=== PATIENT | male | born 1965 | race Caucasian/White ===

== ENCOUNTER → 2017-08-24 07:41 | Outpatient (CLI) | payer OTHER, SELFPAY ==
--- NOTE | 2017-08-24 07:43 | ECHOD_ITS ---
Reason For Study: Family hx of bicuspid AV Procedure This was a 2D Doppler, Color Flow transthoracic echocardiogram. The exam was of adequate technical quality. Exam performed in department. Left Ventricle Normal LV size. Apical false tendon noted. Left ventricular systolic function is normal. The estimated ejection fraction is 65 %. No evidence for diastolic dysfunction. No regional wall motion abnormalities noted. Right Ventricle Normal RV size. Normal systolic function. Atria Normal left atrium. Normal right atrium. No doppler evidence for ASD. Mitral Valve There is no mitral annular calcification. Mild diffuse mitral valve thickening. Mild mitral valve prolapse, anterior leaflet. Trivial mitral valve insufficiency. Tricuspid Valve Normal tricuspid valve. Trivial tricuspid valve insufficiency. Right ventricular systolic pressure estimated to be 24 mmHg. Aortic Valve Trisinus/trileaflet aortic valve. Normal aortic valve. Pulmonic Valve The pulmonic valve is not well visualized. Great Vessels Normal sized aortic root. MMode/2D Measurements & Calculations LVIDd: 4.1 cm IVSd: 0.97 cm Ao root diam: 2.8 cm LVIDs: 2.7 cm LVPWd: 1.0 cm LA dimension: 2.8 cm RVDd: 3.0 cm FS: 34.8 % LAV(MOD-bp): 42.5 ml LA A4 area: 14.5 cm2 RA A4 area: 14.9 cm2 LAV(MOD-bp) Indexed: 24.0 ml/m2 LAV(MOD-sp2): 42.2 ml LAV(MOD-sp4): 37.1 ml Doppler Measurements & Calculations MV E max ko: 97.5 cm/sec Lat Peak E' Ko: 12.0 cm/sec Med Peak E' Ko: 12.7 cm/sec MV A max ko: 51.0 cm/sec E/E' lat: 8.1 E/E' med: 7.7 MV E/A: 1.9 Ao V2 max: 104.0 cm/sec LV V1 max: 88.3 cm/sec PA V2 max: 87.4 cm/sec Ao max P.3 mmHg LV V1 max P.1 mmHg TR max ok: 226.1 cm/sec TR max P.5 mmHg Interpretation Summary Left ventricular systolic function is normal. The estimated ejection fraction is 65 %. Apical false tendon noted. Mild mitral valve prolapse, anterior leaflet Mild diffuse mitral valve thickening. Trivial mitral valve insufficiency. Trivial tricuspid valve insufficiency. Right ventricular systolic pressure estimated to be 24 mmHg. No evidence for diastolic dysfunction. Ordering Physician: Lenny Munoz Referring Physician: Dora Luz M.D. Performed By: Melita Whalen RDCS
== END ==
PROVIDERS: Family Provider Internal Medicine; PCP Internal Medicine; Visit Provider Internal Medicine Cardiovascular Disease
DX: Z82.79 Family history of other congenital malformations, deformations and chromosomal abnormalities (principal)
CPT/HCPCS: 93306

== ENCOUNTER → 2018-04-04 16:28 | Outpatient (CLI) | payer OTHER, SELFPAY ==
[2017-08-17 15:35] VITALS: BMI 25.0
== END ==
PROVIDERS: Family Provider Internal Medicine; PCP Internal Medicine; Referring Provider Otolaryngology Otolaryngology/Facial Plastic Surgery; Visit Provider Otolaryngology Otolaryngology/Facial Plastic Surgery
DX: J02.9 Acute pharyngitis, unspecified (principal); J32.9 Chronic sinusitis, unspecified
CPT/HCPCS: 87070; 87077; 87186

== ENCOUNTER 2018-07-01 06:30 | Observation (INO) | payer OTHER, SELFPAY ==
[2018-07-01] VITALS (10 sets, daily range): BP systolic 119–138; BP diastolic 61–108; PULSE 60–74; RESP 15–20; TEMP 36.4–37.3; O2SAT 96–99; BMI 26.0; BMI 25.0
--- NOTE | 2018-07-01 06:58 | EKG12_ITS ---
Test Reason : REPEAT Blood Pressure : / mmHG Vent. Rate : 066 BPM Atrial Rate : 066 BPM P-R Int : 182 ms QRS Dur : 090 ms QT Int : 386 ms P-R-T Axes : 052 -36 032 degrees QTc Int : 404 ms Normal sinus rhythm Left axis deviation Abnormal ECG Confirmed by ALEXX GONZALES, BELÉN ([id number]), design editor BUDDY VIZCARRA ([id number]) on 07/04/2018 1:48:55 PM Referred By: SHARRON Confirmed By:BELÉN COFFEY MD
--- NOTE | 2018-07-01 06:58 | RAD_ITS ---
STUDY: X-RAY CHEST REASON FOR EXAM: Male, 52 years old. Chest pain TECHNIQUE: Frontal view COMPARISON: None. FINDINGS: The lungs are clear and expanded. There is no demonstrated pleural abnormality. Normal size heart. Normal mediastinum and jacqueline. Normal visualized pulmonary arteries. Normal visualized aortic arch and descending thoracic aorta. Normal visualized thoracic spine. Normal visualized ribs, clavicles, and shoulders. There is no demonstrated abnormality of the visualized soft tissue structures of the upper abdomen. RAD/Chest 1 View (Portable) IMPRESSION: Normal x-ray examination of the chest. Electronically Signed: Lasha Wu MD at 7:29 EDT , Service support ,
--- NOTE | 2018-07-01 06:58 | CT_ITS ---
STUDY: CTA CHEST REASON FOR EXAM: Male, 52 years old. Sudden onset back pain RADIATION DOSAGE (If Supplied By Facility): CTDIvol = ( 10.54 ) mGy, DLP = ( 533.07 ) mGycm TECHNIQUE: The examination was performed with the intravenous administration of 100CC IV Isovue 370. Post-processing of the angiographic images was performed, with multiplanar reformation and 3D reconstruction. Individualized dose optimization techniques were used for this CT. COMPARISON: None. FINDINGS: Status post left thyroidectomy Normal enhancement of the main pulmonary artery and right and left pulmonary arteries. Normal enhancement of the bilateral peripheral pulmonary arteries. There is no demonstrated pulmonary embolism. Normal thoracic aorta and visualized great vessels. There is no demonstrated aortic dissection. Normal heart and pericardium. Normal mediastinum. Normal hilar regions. Normal visualized trachea and bronchi. The lungs are well expanded. Normal pulmonary parenchyma. Normal pleura. Normal chest wall structures. There are degenerative changes of thoracic spine. Normal visualized upper abdomen. CT/CTA Chest W/WO Contrast IMPRESSION: Normal CTA chest examination, without a demonstrated pulmonary embolism or arterial dissection. Evaluation of the abdominal aorta as well demonstrates no evidence of dissection. Essentially unremarkable exam. Electronically Signed: Kentrell Hanson DO at 8:38 EDT Tel , Service support ,
--- NOTE | 2018-07-01 06:59 | CT_ITS ---
STUDY: CTA CHEST REASON FOR EXAM: Male, 52 years old. Sudden onset back pain RADIATION DOSAGE (If Supplied By Facility): CTDIvol = ( 10.54 ) mGy, DLP = ( 533.07 ) mGycm TECHNIQUE: The examination was performed with the intravenous administration of 100CC IV Isovue 370. Post-processing of the angiographic images was performed, with multiplanar reformation and 3D reconstruction. Individualized dose optimization techniques were used for this CT. COMPARISON: None. FINDINGS: Status post left thyroidectomy Normal enhancement of the main pulmonary artery and right and left pulmonary arteries. Normal enhancement of the bilateral peripheral pulmonary arteries. There is no demonstrated pulmonary embolism. Normal thoracic aorta and visualized great vessels. There is no demonstrated aortic dissection. Normal heart and pericardium. Normal mediastinum. Normal hilar regions. Normal visualized trachea and bronchi. The lungs are well expanded. Normal pulmonary parenchyma. Normal pleura. Normal chest wall structures. There are degenerative changes of thoracic spine. Normal visualized upper abdomen. CT/CT ANGIO ABD&PEL W/O&W/DYE IMPRESSION: Normal CTA chest examination, without a demonstrated pulmonary embolism or arterial dissection. Evaluation of the abdominal aorta as well demonstrates no evidence of dissection. Essentially unremarkable exam. Electronically Signed: Kentrell Hanson DO at 8:38 EDT Tel , Service support ,
--- NOTE | 2018-07-01 07:00 | ED.VISSUMM ---
- ER Visit Summary Date of Service: 07/01/18 Chief Complaint: Back pain History of Present Illness: The patient is a 52 M who presents with sudden onset of thoracic back pain radiating into the chest. Patient states he rolled over in bed to his right side and was woken by severe back pain between his shoulder blades. He had associated chest pain and tightness, and had an episode of the arms also feeling tight and numb. Pain is waxing and waning in intensity. Family states he turned very pale, and the patient thought his heart might not be beating. Patient has no medical history. Denies any cardiac history, but has a family history of bicuspid aortic valve. Patient does not take any medications. No tobacco use, occasional alcohol use. No abdominal pain, nausea or vomiting, diarrhea or urinary symptoms. Physical Examination: Vital signs: afebrile, hemodynamically stable, no hypoxia on room air General: well nourished, well developed, in no distress Skin: warm, dry, no rash, pale HEENT: normocephalic and atraumatic; PERRL, EOMI, moist mucous membranes, no conjunctiva pallor Cardiovascular: regular rate and rhythm without murmurs, no peripheral edema, 2+ pulses all distal extremities Respiratory: No increased work of breathing, lungs are clear to auscultation bilaterally, no rales, rhonchi or wheezing Abdominal: Abdomen is soft, nontender with normoactive bowel sounds, no guarding or rebound, no pulsatile masses, no spinal or paraspinal tenderness in the back MSK: Moves all extremities, no deformities, normal strength Neuro: Awake and alert, oriented ?4. No facial droop, sensation and motor function intact and symmetric Test Results: [ Abnormal Lab Results 07/01/18 07/01/18 07/01/18 06:30 06:30 06:30 WBC 6.5 RBC 4.27 L Hgb 13.6 Hct 39.6 L MCV 92.7 MCH 31.9 MCHC 34.3 RDW 12.0 RDW Differential 40.6 Plt Count 204 MPV 10.7 Immature Gran % (Auto) 0.200 Neut % (Auto) 41.1 L Lymph % (Auto) 42.2 H [place] % (Auto) 9.4 Eos % (Auto) 6.6 H Baso % (Auto) 0.5 Absolute Neuts (auto) 2.7 Absolute Lymphs (auto) 2.74 Total Counted Not Reportable PT 13.4 INR 1.0 APTT 27.3 Sodium 142 Potassium 3.7 Chloride 107 Carbon Dioxide 28.0 Anion Gap 7 BUN 16 Creatinine 1.11 Estim Creat Clear Calc 71.85 Est GFR (MDRD) Af Amer 90 Est GFR (MDRD) Non-Af 74 BUN/Creatinine Ratio 14.4 Glucose 117 H Calcium 8.3 L Total Bilirubin 0.30 AST 17 ALT 26 Alkaline Phosphatase 60 Troponin I < 0.015 Total Protein 6.9 Albumin 3.5 Globulin 3.4 Albumin/Globulin Ratio 1.0 Lipase 113 Clinical Impression(s) from Imaging Studies Chest CTA 07/01/18 06:58 IMPRESSION: Normal CTA chest examination, without a demonstrated pulmonary embolism or arterial dissection. Evaluation of the abdominal aorta as well demonstrates no evidence of dissection. Essentially unremarkable exam. Electronically Signed: Kentrell Hanson DO at 8:38 EDT Tel , Service support , Chest X-Ray 07/01/18 06:58 IMPRESSION: Normal x-ray examination of the chest. Electronically Signed: Lasha Wu MD at 7:29 EDT , Service support , Abdomen/Pelvis CTA 07/01/18 06:59 IMPRESSION: Normal CTA chest examination, without a demonstrated pulmonary embolism or arterial dissection. Evaluation of the abdominal aorta as well demonstrates no evidence of dissection. Essentially unremarkable exam. Electronically Signed: Kentrell Hanson DO at 8:38 EDT Tel , Service support , Medications Given Discontinued Medications Sodium Chloride () 1,000 mls @ 1,000 mls/hr IV .Q1H ONE Stop: 07/01/18 07:57 Last Admin: 07/01/18 07:09 Dose: 1,000 mls/hr Morphine Sulfate () 4 mg IV X1 ONE Stop: 07/01/18 07:34 Last Admin: 07/01/18 07:56 Dose: 4 mg Ondansetron HCl (Zofran) 4 mg IV X1 ONE Stop: 07/01/18 07:34 Last Admin: 07/01/18 07:56 Dose: 4 mg Emergency Department Course and Treatment: Patient presents with sudden onset severe back pain radiating into the chest and arms, and is pale on initial assessment. Concern for ACS, dissection, or embolism, acute pancreatitis, among other possible pathologies. Chest x-ray, CTA, EKG, lab work performed. Chest x-ray showed no pneumonia, pneumothorax, or widened mediastinum. Initial EKG showed a sinus rhythm without any ischemic changes or ectopy. Labs showed negative troponin, no leukocytosis, no electrolyte, hepatic or renal derangements. Lipase normal. CT angios of the chest, abdomen and pelvis showed no dissection, aortic aneurysm, pulmonary embolism, or other abnormalities to explain patient's symptoms. Patient began having worsening pain and was given morphine. Once the CT angios showed no dissection, patient was given aspirin and additional morphine. Patient had a repeat EKG that showed no changes from the initial EKG. Patient has no cardiac risk factors, however given his concerning story and thoracic back and chest pain with occasional radiation into the arms, this is concerning for possible acute coronary syndrome. He was discussed with Dr. Cleaning for admission for further chest pain rule out. Treatment Plan: [] Disposition: [] Impression: Chest and thoracic back pain, concern for ACS This note was generated with [employer] dictation software. It may contain incorrect words, spelling, and punctuation that were not noted in review of the chart prior to signing ED Disposition - Plan for ED Patient: Referrals: Dora Luz DO [Primary Care Provider] -
[2018-07-01] MEDS: 0.9% Normal Saline 1,000 ML 1000 ML IV (07:09)
[2018-07-01 07:19] LABS: Absolute Lymphocyte Count 2.74 X10^3/ul (0.83-4.51); Absolute Neutrophil Count 2.7 X10^3/uL (2.0-7.7); Basophil# 0.03 X10^3/uL; Basophil% 0.5 % (0-1); Eosinophil# 0.43 X10^3/uL; Eosinophils% 6.6 % (0-5); Hematocrit 39.6 % (40-54); Hemoglobin 13.6 g/dl (13.0-16.5); Lymphocyte # 2.74 X10^3/ul (4.0); Lymphocyte % 42.2 % (19-41); Mean Corp Hgb Conc 34.3 g/gl (32-36); Mean Corpuscular Hgb 31.9 pg (27.0-32.0); Mean Corpuscular Volume 92.7 fL (80-94); Mean Platelet Vol. 10.7 fl (6.2-12.0); Monocyte# 0.61 X10^3/uL; Monocyte% 9.4 % (0-10); Neutrophil # 2.68 X10^3/uL (2.7-7.7); Neutrophil % 41.1 % (47-70); Platelet Count 204 K/mm3 (150-450); RBC Distribution Width SD 40.6 fl (35.1-43.9); Red Blood Count 4.27 M/mm3 (4.6-6.2); White Blood Count 6.5 K/mm3 (4.4-11.0)
[2018-07-01 07:20] LABS: POSITIVE COUNT NO; POSITIVE DIFFERENTIAL NO; POSITIVE MORPHOLOGY NO
[2018-07-01 07:23] LABS: Partial Thromboplast Time 27.3 Seconds (24.1-36.2); Prothrombin Time (Protime)PT. 13.4 SECONDS (11.7-14.9)
[2018-07-01 07:29] LABS: AST(SGOT) 17 U/L (15-37); Alanine Aminotransfer ALT/SGPT 26 U/L (16-61); Albumin, Serum 3.5 g/dL (3.2-5.0); Alkaline Phosphatase 60 U/L (45-117); Anion Gap 7 (5-15); BUN 16 mg/dL (7-18); BUN/Creat Ratio 14.4 RATIO (10-20); Calcium,Total 8.3 mg/dL (8.5-10.1); Chloride 107 mmol/L (98-107); Creatinine, Serum 1.11 mg/dL (0.70-1.30); EST Glomerular Filtration Rate 74 mL/min (>60); Est Glom Filt Rate - Afr Amer 90 mL/min (>60); Estimated Creatinine Clearance 71.85 ml/min; Globulin 3.4 g/dL (2.2-4.2); Glucose 117 mg/dL (74-106); Lipase 113 U/L (73-393); Potassium 3.7 mmol/L (3.5-5.1); Protein, Total 6.9 g/dL (6.4-8.2); Sodium Level 142 mmol/L (136-145)
[2018-07-01] MEDS: Morphine 4 MG/ML Syringe IV ×2 (07:56→09:13)
[2018-07-01] MEDS: Ondansetron 4 MG/2 ML Vial IV (07:56)
--- NOTE | 2018-07-01 08:54 | EKG12_ITS ---
Test Reason : BACK Blood Pressure : / mmHG Vent. Rate : 066 BPM Atrial Rate : 066 BPM P-R Int : 184 ms QRS Dur : 088 ms QT Int : 388 ms P-R-T Axes : 037 -13 031 degrees QTc Int : 406 ms Normal sinus rhythm Normal ECG Confirmed by ALEXX GONZALES, BELÉN ([id number]), school photograph editor BUDDY VIZCARRA ([id number]) on 07/04/2018 1:49:11 PM Referred By: SHARRON Confirmed By:BELÉN COFFEY MD
[2018-07-01] MEDS: Aspirin 81 MG TAB.CHEW 324 MG PO (09:12)
--- NOTE | 2018-07-01 09:19 | NURSING ---
DR RHONDA MCDERMOTT
--- NOTE | 2018-07-01 09:24 | PCM.HP.STD ---
Problem List (1) Chest pain Status: Acute (2) Family history of bicuspid aortic valve Status: Chronic (3) Family history of valvular heart disease Status: Chronic History of Present Illness Date of Admission: 07/01/18 Chief Complaint: Chest discomfort The patient is a 52 year old M in relatively good health who presented to the emergency department with chest discomfort. Patient states he turned around in bed on the morning of his presentation and developed sudden onset of chest discomfort. He described the discomfort as pressure radiating to his back as well as both arms. He also did experience some nausea but no vomiting. He also had difficulty breathing. He presented to the emergency department where he underwent subsequent evaluation with CTA of the abdomen and chest both unremarkable. His initial set of cardiac enzymes also came back negative admitted to a monitored bed for subsequent evaluation Past Medical History Past Medical History (Chronic Problems): Chronic Problems (Last Updated 08/17/17 @ 15:39 by Gertrude Colmenares) Family history of bicuspid aortic valve (Chronic) Family history of valvular heart disease (Chronic) Medical History: Medical History (Last Reviewed 07/01/18 @ 09:47 by Chris Cleaning MD) Family history of bicuspid aortic valve (Acute) Z82.79 Family history of valvular heart disease (Chronic) Z82.49 Cyst of buttocks L72.9 Hydrocele N43.3 Allergies No Known Allergies Allergy (Unverified 08/17/17 15:35) Home Medications: Ambulatory Orders Medication Instructions Recorded ascorbic acid (vitamin C) 500 mg 1,000 mg PO QDAY cap 08/16/17 capsule cholecalciferol (vitamin D3) 2,000 2,000 unit PO QDAY 08/16/17 unit capsule multivitamin tablet 1 tab PO QDAY 08/16/17 omega-3 fatty acids 1,000 mg 1,000 mg PO QDAY 08/16/17 capsule Calcium Carb/Mag Ox/Zinc Sulf 1 each PO DAILY 07/01/18 [Sqjqsry-Tmytuevha-Chwv Tablet] Vitamin B Complex/Folic Acid 0.4 mg PO DAILY 07/01/18 [Super B Maxi Complex Caplet] Surgical History: Surgical History (Last Reviewed 07/01/18 @ 09:47 by Chris Cleaning MD) Hx of appendectomy Z90.49 Smoking Status: Never smoker - *Family History Paternal Family History: Family History (Last Reviewed 07/01/18 @ 09:48 by Chris Cleaning MD) Father Bicuspid aortic valve Other Family history of valvular heart disease Maternal Family History: Family History (Last Reviewed 07/01/18 @ 09:48 by Chris Cleaning MD) Father Bicuspid aortic valve Other Family history of valvular heart disease Review of Systems Constitutional: Denies: Anorexia, Chills, Fever, Night Sweats, Weight Change HEENT: Denies: Head Aches, Sinus Congestion, Sinus Drainage Cardiovascular: Reports: Chest Pain. Denies: Orthopnea, Palpitations, Paroxysmal Noc. Dyspnea Respiratory: Reports: Shortness of Breath. Denies: Cough Gastrointestinal: Reports: Nausea. Denies: Abdominal Pain, Hematemesis, Hematochezia, Melena, Vomiting Genitourinary: Denies: Dysuria, Frequency, Hematuria, Urgency Musculoskeletal: Denies: Joint Pain, Joint Tenderness Skin: Denies: Rash Neurological: Denies: Focal weakness, Numbness, Tingling Psychiatric: Denies: Homicidal Ideations, Suicidal Ideations Hematologic/ Lymphatic: Denies: Easy Bruising, Easy Bleeding VTE Information - Inpt Only VTE Present on Admission: No VTE Mechan Device Prophylaxis: None VTE Pharm Prophylaxis ordered?: Yes Patient Problems: Active and Suspected Problems (Last Updated 08/17/17 @ 15:39 by Gertrude Colmenares) Chest pain (Acute) Objective: GENERAL: cooperative HEENT: Atraumatic; moist oral mucosa EYES; Anicteric, Normal Conjunctiva NECK; supple, normal thyroid, no distended JVD. RESPIRATORY: Diminished to auscultation bilaterally, CARDIOVASCULAR: Regular S1 S2, no audible murmurs GI: soft, non-tender, normoactive bowel sounds, : No Renal angle tenderness; EXTREMITIES: No edema, no clubbing, no cyanosis. MUSCULOSKELETAL: No Joint Tenderness; no muscle waisting NEURO: Awake; no lateralizing signs. SKIN: No Rash PSYCH; Normal affect - Physical Exam Vital Signs Temp Pulse Resp BP Pulse Ox 97.6 F L 69 16 132/84 H 99 07/01/18 06:31 07/01/18 08:38 07/01/18 08:38 07/01/18 08:38 07/01/18 08:38 Oxygen Delivery Method Room Air Weight: 73.3 kg Body Mass Index (BMI) 26.0 Laboratory Tests Past 24 Hrs 07/01/18 07/01/1807/01/19 06:30 06:30 06:30 WBC 6.5 RBC 4.27 L Hgb 13.6 Hct 39.6 L MCV 92.7 MCH 31.9 MCHC 34.3 RDW 12.0 RDW Differential 40.6 Plt Count 204 MPV 10.7 Immature Gran % (Auto) 0.200 Neut % (Auto) 41.1 L Lymph % (Auto) 42.2 H [place] % (Auto) 9.4 Eos % (Auto) 6.6 H Baso % (Auto) 0.5 Absolute Neuts (auto) 2.7 Absolute Lymphs (auto) 2.74 Total Counted Not Reportable PT 13.4 INR 1.0 APTT 27.3 Sodium 142 Potassium 3.7 Chloride 107 Carbon Dioxide 28.0 Anion Gap 7 BUN 16 Creatinine 1.11 Estim Creat Clear Calc 71.85 Est GFR (MDRD) Af Amer 90 Est GFR (MDRD) Non-Af 74 BUN/Creatinine Ratio 14.4 Glucose 117 H Calcium 8.3 L Total Bilirubin 0.30 AST 17 ALT 26 Alkaline Phosphatase 60 Troponin I < 0.015 Total Protein 6.9 Albumin 3.5 Globulin 3.4 Albumin/Globulin Ratio 1.0 Lipase 113 Assessment/Plan All Active Problems (Last Updated 08/17/17 @ 15:39 by Gertrude Colmenares) Chest pain (Acute) Patient is a 52-year-old gentleman in relatively good health presented with chest pain 1. Atypical chest pain patient has been placed on a monitored bed plan is to rule out AR with serial cardiac enzymes patient undergo subsequent evaluation with a 2D echo as well as a nuclear stress test if AR is ruled out 2. Family history of valvular heart disease. Father had bicuspid aortic valve which was repaired 3. DVT prophylaxis: SC Lovenox. Code Visit OBSV E&M: [id number] Initial observation care L2
--- NOTE | 2018-07-01 09:27 | NURSING ---
PCU CP KITJAROD
[2018-07-01] MEDS: Nitroglycerin SL (ED/IMG/CATH) 0.4 MG TABLET SUBLINGUAL (09:32)
--- NOTE | 2018-07-01 10:04 | EKG12_ITS ---
Test Reason : AM EKG Blood Pressure : / mmHG Vent. Rate : 067 BPM Atrial Rate : 067 BPM P-R Int : 170 ms QRS Dur : 086 ms QT Int : 370 ms P-R-T Axes : 045 -14 043 degrees QTc Int : 390 ms Normal sinus rhythm Low voltage QRS (Limb leads) Confirmed by ALEXX GONZALES, BELÉN ([id number]), senior technical editor BUDDY VIZCARRA ([id number]) on 07/04/2018 1:55:49 PM Referred By: LYN Confirmed By:BELÉN COFFEY MD
[2018-07-01] MEDS: Enoxaparin 40 MG/0.4 ML Syringe SC (12:01)
[2018-07-01] MEDS: Acetaminophen 325 MG Tablet 650 MG PO (17:40)
[2018-07-01] MEDS: Atorvastatin Calcium 40 MG Tablet PO (21:28)
[2018-07-02 03:00] VITALS: PULSE 63
[2018-07-02 03:30] VITALS: BP 124/72; PULSE 64; RESP 18; TEMP 37.1; O2SAT 96
[2018-07-02] MEDS: Aspirin E.C. 81 MG Tablet PO (05:06)
[2018-07-02] MEDS: 0.9% NaCl Peripheral Flush Adult/Peds IV (05:08)
[2018-07-02 05:28] LABS: Hematocrit 38.9 % (40-54); Hemoglobin 13.3 g/dl (13.0-16.5); Mean Corp Hgb Conc 34.2 g/gl (32-36); Mean Corpuscular Hgb 31.7 pg (27.0-32.0); Mean Corpuscular Volume 92.8 fL (80-94); Mean Platelet Vol. 10.8 fl (6.2-12.0); Platelet Count 195 K/mm3 (150-450); RBC Distribution Width SD 39.6 fl (35.1-43.9); Red Blood Count 4.19 M/mm3 (4.6-6.2); White Blood Count 7.5 K/mm3 (4.4-11.0)
[2018-07-02 05:34] LABS: International Normalized Ratio 1.1; Scan Indicated on CBC? Y/N NO
[2018-07-02 05:35] LABS: Partial Thromboplast Time 30.4 Seconds (24.1-36.2)
--- NOTE | 2018-07-02 05:55 | EKG12_ITS ---
Test Reason : CP ADMISSION Blood Pressure : / mmHG Vent. Rate : 059 BPM Atrial Rate : 059 BPM P-R Int : 198 ms QRS Dur : 086 ms QT Int : 382 ms P-R-T Axes : 037 -19 036 degrees QTc Int : 378 ms Sinus bradycardia Low voltage QRS (Limb leads) Confirmed by ALEXX GONZALES, BELÉN ([id number]), food editor BUDDY VIZCARRA ([id number]) on 07/04/2018 1:57:41 PM Referred By: RHONDA Confirmed By:BELÉN COFFEY MD
--- NOTE | 2018-07-02 05:55 | ECHOD_ITS ---
Reason For Study: CHEST PAIN Procedure This was a 2D Doppler, Color Flow transthoracic echocardiogram. Exam performed portable in patient room. Left Ventricle Normal LV size. Left ventricular systolic function is normal. The estimated ejection fraction is 60 %. Normal diastology for age. No regional wall motion abnormalities noted. Right Ventricle Normal RV size. Normal systolic function. Atria Normal left atrium. Normal right atrium. Mitral Valve Normal mitral valve. Mild (1+) eccentric mitral valve insufficiency. Tricuspid Valve Normal tricuspid valve. Mild (1+) tricuspid valve insufficiency. Pulmonary artery systolic pressure is 25 mmHg. Aortic Valve Normal aortic valve. Trisinus/trileaflet aortic valve. Pulmonic Valve Normal pulmonic valve. Great Vessels Normal aortic root. The pulmonary artery is normal size. Normal inferior vena cava. Pericardium/Pleural No pericardial effusion. MMode/2D Measurements & Calculations LVIDd: 4.1 cm IVSd: 0.94 cm Ao root diam: 3.3 cm LVIDs: 2.6 cm LVPWd: 0.90 cm RVDd: 3.4 cm FS: 35.8 % LAV(MOD-bp): 33.2 ml LA A4 area: 12.9 cm2 LA dimension(2D): 2.7 cm LAV(MOD-bp) Indexed: 18.5 ml/m2 LAV(MOD-sp2): 31.6 ml LAV(MOD-sp4): 29.8 ml RA A4 area: 18.7 cm2 Time Measurements MV dec time: 0.18 sec Doppler Measurements & Calculations MV E max ko: 85.3 cm/sec Lat Peak E' Ko: 9.7 cm/sec Med Peak E' Ko: 9.8 cm/sec MV A max ko: 55.1 cm/sec E/E' lat: 8.8 E/E' med: 8.7 MV E/A: 1.5 Ao V2 max: 97.5 cm/sec LV V1 max: 84.6 cm/sec TR max ko: 233.6 cm/sec Ao max P.8 mmHg LV V1 max P.9 mmHg TR max P.8 mmHg Interpretation Summary Normal LV size. Left ventricular systolic function is normal. The estimated ejection fraction is 60 %. Normal diastology for age. Structurally normal valves. Ordering Physician: Chris Cleaning Referring Physician: Dora Luz Performed By: Gely Mccullough, AKHIL, RVT
[2018-07-02 05:59] LABS: ALB/GLOB Ratio 1.1 RATIO (0.9-2.4); AST(SGOT) 15 U/L (15-37); Alanine Aminotransfer ALT/SGPT 25 U/L (16-61); Albumin, Serum 3.5 g/dL (3.2-5.0); Alkaline Phosphatase 57 U/L (45-117); Anion Gap 7 (5-15); BUN 11 mg/dL (7-18); BUN/Creat Ratio 11.3 RATIO (10-20); Calcium,Total 8.4 mg/dL (8.5-10.1); Chloride 107 mmol/L (98-107); Cholesterol 178 mg/dL (200); Creatinine, Serum 0.98 mg/dL (0.70-1.30); EST Glomerular Filtration Rate 86 mL/min (>60); Est Glom Filt Rate - Afr Amer 104 mL/min (>60); Estimated Creatinine Clearance 81.38 ml/min; Globulin 3.3 g/dL (2.2-4.2); Glucose 104 mg/dL (74-106); High Density Lipoprotein 49 mg/dL; Potassium 3.9 mmol/L (3.5-5.1); Protein, Total 6.8 g/dL (6.4-8.2); Sodium Level 141 mmol/L (136-145); Thyroid Stim Hormone (TSH) 1.08 uIU/mL (0.358-3.74); Triglycerides 139 mg/dL; Very Low Density Lipoprotein 28 mg/dL (5-40)
--- NOTE | 2018-07-02 08:38 | STRESSREP ---
Stress Test Report Exercise myocardial perfusion stress test. 52-year-old male with a history of chest pain. Stress protocol: Resting EKG demonstrates normal sinus rhythm with a rate of 66 bpm normal intervals are noted resting blood pressure is 112/80 mmHg. The patient exercised according to regular Anurag protocol for a total duration of 11 minutes. Patient completed 2 minutes into stage IV of the Anurag protocol. The maximum heart rate attained was 166 bpm which was 97% of maximum predicted heart rate the maximum workload was 13.4 metabolic equivalents. At rest there were no ST or T wave changes noted suggest ischemia at peak exercise upsloping ST changes only were noted with no meet the criteria for ischemia. The resting blood pressure was 112/80 mmHg with a peak blood pressure 146/74 mmHg. No clinical angina was noted patient experienced some back discomfort. Myocardial perfusion protocol. 11.7 mCi of technetium 99m sestamibi was injected at rest. Patient exercised according to regular Anurag protocol for total duration of 11 minutes. At peak exercise 33.1 mCi of technetium 99m sestamibi was injected stress images were obtained stress and rest images were reconstructed and compared in the short axis vertical and horizontal long axis. Gated images were also obtained Perfusion SPECT analysis: Review of the stress images demonstrate normal uptake of tracer noted in all areas of the myocardium. The resting images similarly demonstrate normal uptake of tracer noted in all areas of the myocardium. No areas of reversibility are noted suggest ischemia no previous infarct is noted. Gated SPECT analysis: The gated ejection fraction is noted to be 80%. Conclusion: Normal exercise myocardial perfusion stress test at a high workload. Preserved ejection fraction Excellent functional capacity.
[2018-07-02 10:00] VITALS: BP 114/70; PULSE 71; RESP 16; TEMP 36.8; O2SAT 100
--- NOTE | 2018-07-02 10:35 | NURSING ---
[facility] late d/t pt being off unit @ Stress
--- NOTE | 2018-07-02 11:24 | PCM.DC ---
- Discharge Diagnoses Current Active Problems: Current Active and Chronic Problems (Last Reviewed 07/01/18 @ 09:47 by Chris Cleaning MD) Chest pain (Acute) You will use the following diet at home:: No restrictions Your food should be the consistency of: Regular Your liquids should be the consistency of: Regular/Thin Discharge Activity: Return to Normal Activity Weight Bearing Status: Full weight bearing Allergies/Adverse Reactions: Allergies No Known Allergies Allergy (Unverified 08/17/17 15:35) Medications to take at Discharge cholecalciferol (vitamin D3) 2,000 unit capsule 2,000 unit PO QDAY 08/16/17 omega-3 fatty acids 1,000 mg capsule 1,000 mg PO QDAY 08/16/17 Calcium Carb/Mag Ox/Zinc Sulf [Liumrvb-Ldlxetrbf-Gqoo Tablet] 1 each PO DAILY 07/01/18 Vitamin B Complex/Folic Acid [Super B Maxi Complex Caplet] 0.4 mg PO DAILY 07/01/18 Primary Care Physician: Dora Luz DO [Primary Care Provider] - Please follow up with your Primary Care Physician in: within one week Test Results: Test results from this visit will be discussed in further detail at your follow-up appointment, if applicable.
--- NOTE | 2018-07-02 12:14 | PHA.DC.MR ---
Pharmacy Service has performed discharge medication reconciliation for this patient. No new medications added to medication list, medications reviewed are patient's previous medications prior to admission. The patient's discharge medication list was reviewed for discrepancies and discrepancies were resolved. Home Medications cholecalciferol (vitamin D3) 2,000 unit capsule 2,000 unit PO QDAY 08/16/17 omega-3 fatty acids 1,000 mg capsule 1,000 mg PO QDAY 08/16/17 Calcium Carb/Mag Ox/Zinc Sulf [Wstyrhh-Szddjownv-Uvet Tablet] 1 each PO DAILY 07/01/18 Vitamin B Complex/Folic Acid [Super B Maxi Complex Caplet] 0.4 mg PO DAILY 07/01/18
--- NOTE | 2018-07-03 18:20 | PCM.DC.SUM ---
Discharge Date and Diagnosis Date of Admission: 07/01/18 Date of Discharge: 07/02/18 - Primary Discharge Diagnosis #1 musculoskeletal chest pain - Secondary Discharge Diagnosis Chronic Problems (Last Reviewed 07/01/18 @ 09:47 by Chris Cleaning MD) Family history of bicuspid aortic valve (Chronic) Family history of valvular heart disease (Chronic) Hospital Course and Treatment Operations: None Procedures: 2-D Echocardiogram, Nuclear stress test Summary of Care Provided: The patient is a 52 year old M was seen in the emergency room at [facility] with a sudden onset of thoracic back pain radiating into the chest area. He was at rest when this happened. He also complained of his arms feeling numb. Work-up in the emergency room included lab which included a troponin, labs were unremarkable. Patient had an EKG that showed a normal sinus rhythm without evidence of ischemic changes, patient had a CTA of the chest which was unremarkable. Patient was placed and observation status on PCU, 2D echocardiogram was obtained which was unremarkable, patient had a nuclear stress test performed which was negative for reversible ischemia. On 07/02/2018, patient was seen and examined. On examination he appeared in good health and spirits. Vital signs as documented. Skin warm and dry and without overt rashes. Neck without JVD. Lungs clear. Heart exam notable for regular rhythm, normal sounds and absence of murmurs, rubs or gallops. Abdomen unremarkable and without evidence of organomegaly, masses, or abdominal aortic enlargement. Extremities nonedematous. Neuro: Cranial nerves II through XII are grossly intact, no focal motor deficits were noted, sensation to light touch and pinprick intact. Psych: Patient is alert and oriented x3, he does not appear anxious or depressed On 07/02/2018, patient was seen and examined and felt to be in stable condition for discharge home - Physical Exam Vital Signs Temp Pulse Resp BP Pulse Ox 98.3 F 71 16 114/70 100 07/02/18 10:00 07/02/18 10:00 07/02/18 10:00 07/02/18 10:00 07/02/18 10:00 Oxygen Delivery Method Room Air Weight: 70.307 kg Body Mass Index (BMI) 25.0 Intake and Output for Last 24 Hours 07/01/18 07/02/18 07/03/18 23:59 23:59 23:59 Intake Total 800 / 800 180 / 180 Balance 800 / 800 180 / 180 Discharge Activity: Return to Normal Activity Weight Bearing Status: Full weight bearing Home Medications: Medications to take at Discharge cholecalciferol (vitamin D3) 2,000 unit capsule 2,000 unit PO QDAY 08/16/17 omega-3 fatty acids 1,000 mg capsule 1,000 mg PO QDAY 08/16/17 Calcium Carb/Mag Ox/Zinc Sulf [Vgnbudv-Thfvleuqh-Tozr Tablet] 1 each PO DAILY 07/01/18 Vitamin B Complex/Folic Acid [Super B Maxi Complex Caplet] 0.4 mg PO DAILY 07/01/18 Primary Care Physician: Dora Luz DO [Primary Care Provider] - Please follow up with your Primary Care Physician in: within one week Please Follow Up With: Dora Luz DO Disposition: Home Minutes spent on discharge:: 30 Patient Condition:: Stable Medical Necessity - Tobacco Use Smoking Status: Never smoker Meaningful Use Info Meaningful Use Diagnoses (Choose all that apply): None applicable Code Visit OBSV E&M: 49763 Observation care discharge
--- NOTE | 2018-07-03 18:24 | DS.PCM_ITS ---
Discharge Date and Diagnosis Date of Admission: 07/01/18 Date of Discharge: 07/02/18 - Primary Discharge Diagnosis #1 musculoskeletal chest pain - Secondary Discharge Diagnosis Chronic Problems (Last Reviewed 07/01/18 @ 09:47 by Chris Cleaning MD) Family history of bicuspid aortic valve (Chronic) Family history of valvular heart disease (Chronic) Hospital Course and Treatment Operations: None Procedures: 2-D Echocardiogram, Nuclear stress test Summary of Care Provided: The patient is a 52 year old M was seen in the emergency room at [facility] with a sudden onset of thoracic back pain radiating into the chest area. He was at rest when this happened. He also complained of his arms feeling numb. Work-up in the emergency room included lab which included a troponin, labs were unremarkable. Patient had an EKG that showed a normal sinus rhythm without evidence of ischemic changes, patient had a CTA of the chest which was unremarkable. Patient was placed and observation status on PCU, 2D echocardiogram was obtained which was unremarkable, patient had a nuclear stress test performed which was negative for reversible ischemia. On 07/02/2018, patient was seen and examined. On examination he appeared in good health and spirits. Vital signs as documented. Skin warm and dry and without overt rashes. Neck without JVD. Lungs clear. Heart exam notable for regular rhythm, normal sounds and absence of murmurs, rubs or gallops. Abdomen unremarkable and without evidence of organomegaly, masses, or abdominal aortic enlargement. Extremities nonedematous. Neuro: Cranial nerves II through XII are grossly intact, no focal motor deficits were noted, sensation to light touch and pinprick intact. Psych: Patient is alert and oriented x3, he does not appear anxious or depressed On 07/02/2018, patient was seen and examined and felt to be in stable condition for discharge home - Physical Exam Vital Signs Temp Pulse Resp BP Pulse Ox 98.3 F 71 16 114/70 100 07/02/18 10:00 07/02/18 10:00 07/02/18 10:00 07/02/18 10:07/02/18 10:00 Oxygen Delivery Method Room Air Weight: 70.307 kg Body Mass Index (BMI) 25.0 Intake and Output for Last 24 Hours 07/01/18 07/02/18 07/03/18 23:59 23:59 23:59 Intake Total 800 / 800 180 / 180 Balance 800 / 800 180 / 180 Discharge Activity: Return to Normal Activity Weight Bearing Status: Full weight bearing Home Medications: Medications to take at Discharge cholecalciferol (vitamin D3) 2,000 unit capsule 2,000 unit PO QDAY 08/16/17 omega-3 fatty acids 1,000 mg capsule 1,000 mg PO QDAY 08/16/17 Calcium Carb/Mag Ox/Zinc Sulf [Ftnkver-Prgsrxqkj-Nott Tablet] 1 each PO DAILY 07/01/18 Vitamin B Complex/Folic Acid [Super B Maxi Complex Caplet] 0.4 mg PO DAILY 07/01/18 Primary Care Physician: Dora Luz DO [Primary Care Provider] - Please follow up with your Primary Care Physician in: within one week Please Follow Up With: Dora Luz DO Disposition: Home Minutes spent on discharge:: 30 Patient Condition:: Stable Medical Necessity - Tobacco Use Smoking Status: Never smoker Meaningful Use Info Meaningful Use Diagnoses (Choose all that apply): None applicable Code Visit OBSV E&M: 33188 Observation care discharge
== END 2018-07-02 11:24 | disposition home or self-care (01) ==
LOC: ED 07:11 → PCU 09:36
PROVIDERS: Admitting Provider Internal Medicine; Emergency Provider Emergency Medicine; Family Provider Internal Medicine; PCP Internal Medicine; Visit Provider Internal Medicine
DX: R07.89 Other chest pain (principal); M54.6 Pain in thoracic spine; R11.0 Nausea; R06.00 Dyspnea, unspecified; Z82.49 Family history of ischemic heart disease and other diseases of the circulatory system
CPT/HCPCS: 36415; 71045; 71275; 74174; 78452; 80053; 80061; 83690; 84443; 84484; 85025; 85027; 85610; 85730; 93005; 93017; 93306; 96361; 96372; 96374; 96375; 96376; 99218; 99285; A9500; J7030; Q9967; A4216; G0378; J2405

== ENCOUNTER → 2018-07-17 | Outpatient (CLI) | payer OTHER, SELFPAY ==
[2018-07-01 10:06] VITALS: BMI 25.0
--- NOTE | 2018-07-17 07:55 | RAD_ITS ---
STUDY: X-RAY - ESOPHAGUS (BARIUM SWALLOW) WITH FLUOROSCOPY REASON FOR EXAM: Male, 52 years old. Proximal dysphagia. TECHNIQUE: 14 view(s) of the esophagus were obtained following swallowing of barium. FLUOROSCOPY TIME (if supplied): (0:40) minutes/seconds COMPARISON: None. FINDINGS: There is no demonstrated esophageal foreign body. There is no demonstrated stricture or mucosal abnormality. Normal gastroesophageal junction, without a demonstrated hiatal hernia. The patient ingested a 12 mm tablet of barium without any difficulty Normal visualized aortic arch and descending thoracic aorta. Normal visualized pulmonary parenchyma. Normal visualized osseous structures of the thorax. RAD/Esophagus Only IMPRESSION: Normal plain film x-ray examination (barium swallow) of the esophagus. Electronically Signed: Saul Warner, at 10:48 EDT , Service support ,
== END | disposition home or self-care (01) ==
LOC: RAD 07:47
PROVIDERS: Family Provider Internal Medicine; PCP Internal Medicine; Referring Provider Nurse Practitioner; Visit Provider Nurse Practitioner
DX: R13.10 Dysphagia, unspecified (principal)
CPT/HCPCS: 74220

== ENCOUNTER → 2024-07-05 | Outpatient (CLI) | payer OTHER, SELFPAY ==
[2024-07-05 07:55] LABS: Absolute Lymphocyte Count 1.68 X10^3/uL (0.83-4.51); Basophil# 0.05 X10^3/uL; Basophil% 0.9 % (0-1); Eosinophil# 0.27 X10^3/uL; Eosinophils% 4.8 % (0-5); Hematocrit 42.3 % (40-54); Hemoglobin 14.4 g/dL (13.0-16.5); Lymphocyte # 1.68 X10^3/ul (0.83-4.51); Lymphocyte % 30.2 % (19-41); Mean Corpuscular Hgb 31.8 pg (27.0-32.0); Mean Corpuscular Volume 93.4 fL (80-94); Mean Platelet Vol. 10.6 fl (6.2-12.0); Monocyte# 0.59 X10^3/uL; Monocyte% 10.6 % (0-10); NRBC Flagged by Analyzer 0 % (0-5); Neutrophil # 2.97 X10^3/uL (2.7-7.7); Neutrophil % 53.3 % (47-70); Platelet Count 222 K/mm3 (150-450); RBC Distribution Width CV 11.9 % (11.6-14.6); RBC Distribution Width SD 41.1 fl (35.1-43.9); Red Blood Count 4.53 M/mm3 (4.6-6.2); White Blood Count 5.6 K/mm3 (4.4-11.0)
--- NOTE | 2024-07-05 08:05 | RAD_ITS ---
PROCEDURE: ESOPHAGUS DUAL CONTRAST 07/05/2024 REASON FOR EXAM: DYSPHAGIA TECHNIQUE: Single and double contrast esophagram. COMPARISON: None. FINDINGS: Recurrent esophageal spasm is seen. No area of persistent narrowing of the esophagus is seen. A very small variable sliding-type hiatal hernia is seen. Recurrent gastroesophageal reflux to the level of the proximal esophagus is noted. Limited imaging of the stomach and duodenum show no abnormality. RAD/Esophagus Dual Contrast IMPRESSION: 1. Recurrent esophageal spasm. 2. Extensive recurrent gastroesophageal reflux. 3. Very small variable sliding-type hiatal hernia. Reading Location: [place] [address]
[2024-07-05 09:00] LABS: Cholesterol 231 mg/dL (<=200); High Density Lipoprotein 57 mg/dL; Low Density Lipoprotein Calc. 152 mg/dL; PSA,Total- Diagnostic 4.94 ng/mL (0.00-4.00); Triglycerides 108 mg/dL; Very Low Density Lipoprotein 22 mg/dL (5-40); cholesterol:hdl ratio screen 4.03
[2024-07-05 09:11] LABS: ALB/GLOB Ratio 1.6 RATIO (0.9-2.4); AST(SGOT) 27 U/L (<=37); Alanine Aminotransfer ALT/SGPT 49 U/L (<=46); Albumin, Serum 4.6 g/dL (3.5-5.0); Alkaline Phosphatase 59 U/L (40-129); Anion Gap 11 (5-15); BUN 20 mg/dL (4-19); BUN/Creat Ratio 20.3 RATIO (10-20); Calcium,Total 9.7 mg/dL (7.6-11.0); Carbon Dioxide 23.9 mmol/L (21.0-32.0); Chloride 100 mmol/L (98-108); Creatinine, Serum 0.98 mg/dL (0.70-1.20); EST Glomerular Filtration Rate 91 (>60); Globulin 2.9 g/dL (2.2-4.2); Glucose 101 mg/dL (70-99); Potassium 3.9 mmol/L (3.3-5.1); Protein, Total 7.4 g/dL (5.9-8.4); Sodium Level 135 mmol/L (133-145); Total Bilirubin 1.02 mg/dL (0.00-1.30)
[2024-07-05 09:32] LABS: CRP < 3.00 mg/L (0.0-3.0)
[2024-07-08 19:08] LABS: Endomysial Antibody IgA Negative (Negative); Immunoglobulin A 147 mg/dL (90-386); t-Transglutaminase IgA <2 U/mL (0-3)
== END | disposition home or self-care (01) ==
PROVIDERS: PCP Internal Medicine; Referring Provider Internal Medicine; Visit Provider Internal Medicine Gastroenterology
DX: Z13.6 Encounter for screening for cardiovascular disorders (principal); R13.10 Dysphagia, unspecified; R10.9 Unspecified abdominal pain; R21 Rash and other nonspecific skin eruption; R39.12 Poor urinary stream; K22.2 Esophageal obstruction
CPT/HCPCS: 36415; 74221; 80053; 80061; 82784; 83516; 84153; 85025; 86140; 86255